=== PATIENT | female | born 1985 | race Caucasian/White ===

== ENCOUNTER 2021-05-25 00:07 | Emergency (ER) | payer BC, OTHER ==
[~2021-05-25] VITALS: Ht 167.6 cm; Wt 102.0 kg
[~2021-05-25 00:07] MED LIST: ONDA4TAB10 SL; TRAM-48 PO
--- NOTE | 2021-05-25 00:41 | PHYS DOC ---
Past History Past Medical History: Hypertension Past Surgical History: No Surgical History Alcohol Use: Rarely Drug Use: None Adult General HPI HPI Patient is a 35-year-old female with a past medical history of [place] with 2 stents placed who presents with chest pain that started approximately 2 hours ago that woke her up from bed with pain 7 out of 10, sharp in nature with radiation to the left arm. Denies recent traumas, illnesses, fevers, dyspnea on exertion, orthopnea, PND or edema, abdominal pain, nausea, vomiting, dysuria, hematuria or blood in the stool. Denies any alcohol or drug use. States that cardiovascular disease runs in the family. Review of Systems Review of Systems Constitutional: Denies fever or chills [] Eyes: Denies change in visual acuity, redness, or eye pain [] HENT: Denies nasal congestion or sore throat [] Respiratory: Denies cough or shortness of breath [] Cardiovascular: No additional information not addressed in HPI [] GI: Denies abdominal pain, nausea, vomiting, bloody stools or diarrhea [] : Denies dysuria or hematuria [] Musculoskeletal: Denies back pain or joint pain [] Integument: Denies rash or skin lesions [] Neurologic: Denies headache, focal weakness or sensory changes [] Endocrine: Denies polyuria or polydipsia [] All other systems were reviewed and found to be within normal limits, except as documented in this note. Allergies Allergies Allergies Coded Allergies Type Severity Reaction Last Updated Verified No Known Drug Allergies 05/29/16 No Physical Exam Physical Exam Constitutional: Well developed, well nourished, no acute distress, non-toxic appearance. [] HENT: Normocephalic, atraumatic, bilateral external ears normal, oropharynx moist, no oral exudates, nose normal. [] Eyes: conjunctiva normal, no discharge. [] Neck: Normal range of motion, no tenderness, supple, no stridor. [] Cardiovascular:Heart rate regular rhythm, no murmur [] Lungs & Thorax: Bilateral breath sounds clear to auscultation [] Abdomen: Bowel sounds normal, soft, no tenderness, no masses, no pulsatile masses. [] Skin: Warm, dry, no erythema, no rash. [] Back: No tenderness, no CVA tenderness. [] Extremities: No tenderness, no cyanosis, no clubbing, ROM intact, no edema. [] Neurologic: Alert and oriented X 3, normal motor function, normal sensory function, no focal deficits noted. [] Psychologic: Affect normal, judgement normal, mood normal. [] EKG EKG [] Radiology/Procedures Radiology/Procedures [] FINDINGS: The heart is not enlarged. Mediastinal and hilar contours are normal. No focal parenchymal airspace opacity. No pleural effusion or pneumothorax. IMPRESSION: 1. No radiographic evidence for acute cardiopulmonary process. Electronically signed by: Mikhail Montemayor MD (05/25/2021 1:10 AM) [facility] Heart Score C/O Chest Pain: Yes HEART Score for Chest Pain: HEART Score for Chest Pain Response (Comments) Value History Highly Suspicious 2 ECG Normal 0 Age < 45 0 Risk Factors >3 Risk Factors or Hx CAD 2 Troponin < Normal Limit 0 Total 4 Risk Factors: Risk Factors: DM, Current or recent (<one month) smoker, HTN, HLP, family history of CAD, obesity. Risk Scores: Risk Factors: DM, Current or recent (<one month) smoker, HTN, HLP, family history of CAD, obesity. Course & Med Decision Making Course & Med Decision Making Patient is a 35-year-old female presents with chest pain Vital signs notable for hypertension. Physical exam noted above. EKG noted above with no STEMI. Troponin slightly elevated. Given aspirin. Heparin started given patient's previous [place] and 2 stents. Laboratory analysis notable for elevated troponin. Discussed all findings with patient and recommended admission to [place] for continued evaluation and treatment of her non-ST elevation [place]. Patient grateful, verbalized understanding and agreed with plan of transfer and admission. Critical care time 30 minutes Dragon Disclaimer Dragon Disclaimer This electronic medical record was generated, in whole or in part, using a voice recognition dictation system. Departure Departure: Impression: Primary Impression: Non-ST elevation [place] (NSTEMI) Disposition: 02 SHORT TERM HOSPITAL Admitting Physician: Juan José Sevilla Condition: STABLE Referrals: JAKE CARROLL MD (PCP) MAIKEL VALIENTE MD May 25, 2021 00:41
--- NOTE | 2021-05-25 00:54 | EKG ---
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
--- NOTE | 2021-05-25 01:13 | RAD ---
EXAM: AP View of the chest DATE: 05/25/2021 12:45 AM INDICATION: Reason: CP / Spl. Instructions: / History: COMPARISON: No Prior FINDINGS: The heart is not enlarged. Mediastinal and hilar contours are normal. No focal parenchymal airspace opacity. No pleural effusion or pneumothorax. IMPRESSION: 1. No radiographic evidence for acute cardiopulmonary process. Electronically signed by: Mikhail Montemayor MD (05/25/2021 1:10 AM) ERICKA
[2021-05-25] MEDS ORDERED: ASPIRIN CHEWABLE 81 MG TABLET. ONE (01:28)
[2021-05-25 01:56] LABS: CREATININE 0.6 mg/dL (0.6-1.0); GFR 112.5; POTASSIUM 3.9 mmol/L (3.5-5.1)
[2021-05-25 01:58] LABS: BASO % 0 % (0-3); EOS # 0.1 x10^3/uL (0.0-0.7); EOS % 2 % (0-3); HEMATOCRIT 35.8 % (36.0-47.0); HEMOGLOBIN 11.8 g/dL (12.0-15.5); LYMPH # 1.6 x10^3/uL (1.0-4.8); LYMPH % 33 % (24-48); MEAN CORPUSCULAR HEMOGLOBIN 26 pg (25-35); MEAN CORPUSCULAR HGB CONC 33 g/dL (31-37); MEAN CORPUSCULAR VOLUME 79 fL (79-100); MONO # 0.3 x10^3/uL (0.0-1.1); MONO % 7 % (0-9); NEUT # 2.7 x10^3uL (1.8-7.7); NEUT % 57 % (31-73); PLATELET COUNT 151 x10^3/uL (140-400); RED BLOOD COUNT 4.56 x10^6/uL (3.50-5.40); RED CELL DISTRIBUTION WIDTH 15.6 % (11.5-14.5); WHITE BLOOD COUNT 4.7 x10^3/uL (4.0-11.0)
[2021-05-25] MEDS ORDERED: MORPHINE SULFATE 4 MG/ML DISP.SYRIN. ONE (02:03)
[2021-05-25] MEDS ORDERED: MORPHINE SULFATE 4 MG/ML DISP.SYRIN. IV ONE ×3 (02:30→05:30)
[2021-05-25] MEDS ORDERED: HEPARIN 25,000UTS/250ML PREMIX 250 ML IV PRN (02:45)
[2021-05-25] MEDS ORDERED: ANTI-COAG MONITOR BY PHARMACY. MC PRN (02:45)
[2021-05-25] MEDS ORDERED: HEPARIN for IV BOLUS 10,000 UNIT/10 ML VIAL. IV PRN (02:45)
[2021-05-25] MEDS ORDERED: HEPARIN for IV BOLUS 10,000 UNIT/10 ML VIAL. IV ONE (03:00)
[2021-05-25 03:42] VITALS: BP 111/73
== END 2021-05-25 04:50 | disposition short-term general hospital (02) ==
LOC: ER 00:07
DX: I21.4 Non-ST elevation (NSTEMI) myocardial infarction (principal); I10 Essential (primary) hypertension
CPT/HCPCS: 36415; 71045; 80048; 83735; 84484; 85025; 85610; 85730; 93005; 96365; 96375; 96376; 99285; J1644; J2270

== ENCOUNTER 2021-05-31 04:21 | Emergency (ER) | payer BC ==
[~2021-05-31] VITALS: Ht 167.6 cm; Wt 102.0 kg
[2021-05-31 05:04] LABS: BASO % 0 % (0-3); CALCIUM 9.3 mg/dL (8.5-10.1); CREATININE 0.6 mg/dL (0.6-1.0); EOS # 0.1 x10^3/uL (0.0-0.7); EOS % 2 % (0-3); GFR 112.5; HEMATOCRIT 38.8 % (36.0-47.0); HEMOGLOBIN 12.6 g/dL (12.0-15.5); LYMPH # 2.1 x10^3/uL (1.0-4.8); LYMPH % 33 % (24-48); MEAN CORPUSCULAR HEMOGLOBIN 26 pg (25-35); MEAN CORPUSCULAR HGB CONC 32 g/dL (31-37); MEAN CORPUSCULAR VOLUME 80 fL (79-100); MONO # 0.4 x10^3/uL (0.0-1.1); MONO % 6 % (0-9); NEUT # 3.6 x10^3uL (1.8-7.7); NEUT % 58 % (31-73); PLATELET COUNT 183 x10^3/uL (140-400); POTASSIUM 3.7 mmol/L (3.5-5.1); RED BLOOD COUNT 4.87 x10^6/uL (3.50-5.40); WHITE BLOOD COUNT 6.2 x10^3/uL (4.0-11.0)
--- NOTE | 2021-05-31 05:05 | EKG ---
[address] [address] Test Date: 2021-05-31 Test Time: 04:26:52 Pat Name: MARLYS PIERSON Department: Room: Gender: F Hay Buckler: : 1985 Requested By: CLARENCE KATE Order Number: [id number] Reading MD: Tod Moreira Measurements Intervals [place] Rate: 67 P: 24 MS: 164 QRS: 45 QRSD: 94 T: 64 QT: 376 QTc: 400 Interpretive Statements SINUS RHYTHM Electronically Signed On 05-31-2021 13:29:46 CDT by Tod Moreira
[2021-05-31] MEDS: NITROGLYCERIN PREMIX 250 ML IV ONE (05:07)
[2021-05-31 05:10] LABS: ALBUMIN 3.7 g/dL (3.4-5.0); ALBUMIN/GLOBULIN RATIO 0.9 (1.0-1.7); TOTAL BILIRUBIN 0.3 mg/dL (0.2-1.0); TOTAL PROTEIN 7.8 g/dL (6.4-8.2)
--- NOTE | 2021-05-31 05:11 | RAD ---
Single view chest dated 05/31/2021 5:09 AM: COMPARISON: 05/25/2021 Clinical Indication: Chest pain. Findings: Single upright portable exam of the chest was performed. Heart size and mediastinal contours are with in normal limits. Lungs are clear. No consolidation or pleural effusion. No pneumothorax. IMPRESSION: No acute radiographic abnormality. Electronically signed by: Yosef Hall MD (05/31/2021 5:09 AM) JAH
[2021-05-31] MEDS: HEPARIN for IV BOLUS 10,000 UNIT/10 ML VIAL. IV ONE (05:25)
[2021-05-31] MEDS: HEPARIN 25,000UTS/250ML PREMIX 250 ML IV PRN (05:29)
[2021-05-31] MEDS: MORPHINE SULFATE 2 MG/ML DISP.SYRIN. IV ONE (05:42)
--- NOTE | 2021-05-31 05:42 | PHYS DOC ---
Past History Past Medical History: Hypertension Additional Past Medical Histor: Raynauds Past Surgical History: Angioplasty, Appendectomy, , Other Additional Past Surgical Histo: 2 stents placed to rt coronary, egd Alcohol Use: Occasionally Drug Use: None Adult General Chief Complaint Chief Complaint: CHEST PAIN [facility] HPI Patient is a 35 year old female who presents with chest pain located in the mid to left chest area. The pain started at rest and after lasting for 10 minutes patient took sublingual nitroglycerin which resolved within 5 minutes. However 5-minute later the pain came back for which she took sublingual nitro again with resolution of the pain. The pain came back the third time and was not resolved by the sublingual nitro and thus comes to the emergency department for further evaluation. The pain is rated 7 out of 10 in intensity without any shortness of breath or nausea. Patient does have a cardiac history and that 2 weeks ago she was seen at [facility] where she had cardiac catheterization done showing coronary artery disease deemed necessitating cardiac bypass. She saw cardiothoracic surgeon at [facility] last Sunday and is scheduled to have CABG done but not till July 25 due to some bed restrictions. Patient otherwise has been taking all her medication as prescribed by physician. Review of Systems Review of Systems Constitutional: Denies fever or chills Eyes: Denies change in visual acuity, redness, or eye pain HENT: Denies nasal congestion or sore throat Respiratory: Denies cough or shortness of breath Cardiovascular: No additional information not addressed in HPI GI: Denies abdominal pain, nausea, vomiting, bloody stools or diarrhea : Denies dysuria or hematuria Musculoskeletal: Denies back pain or joint pain Integument: Denies rash or skin lesions Neurologic: Denies headache, focal weakness or sensory changes Endocrine: Denies polyuria or polydipsia All other systems were reviewed and found to be within normal limits, except as documented in this note. Current Medications Current Medications Current Medications Medications (Trade) Dose Ordered Sig/Shazia Start Time Stop Time Status Last Admin Dose Admin Heparin Sodium (Porcine) (Heparin Sodium) 4,000 unit 1X ONCE 05/31/21 05:00 05/31/21 05:01 DC 05/31/21 05:25 4,000 UNIT Heparin Sodium/ Dextrose 250 ml @ 10 mls/hr CONT PRN 05/31/21 04:45 05/31/21 05:29 10 MLS/HR Nitroglycerin/ Dextrose 250 ml @ 1.5 mls/hr 1X ONCE 05/31/21 04:45 06/07/21 03:24 05/31/21 05:07 1.5 MLS/HR Allergies Allergies Allergies Coded Allergies Type Severity Reaction Last Updated Verified medroxyprogesterone Allergy Intermediate 05/31/21 Yes isosorbide Adverse Reaction Intermediate nausea,vomiting,migraine 05/31/21 Yes Physical Exam Physical Exam Constitutional: Well developed, well nourished, no acute distress, non-toxic appearance. HENT: Normocephalic, atraumatic, bilateral external ears normal, oropharynx moist, no oral exudates, nose normal. Eyes: PERRLA, EOMI, conjunctiva normal, no discharge. Neck: Normal range of motion, no tenderness, supple, no stridor. Cardiovascular:Heart rate regular rhythm, no murmur Lungs & Thorax: Bilateral breath sounds clear to auscultation Abdomen: Bowel sounds normal, soft, no tenderness, no masses, no pulsatile masses. Skin: Warm, dry, no erythema, no rash. Back: No tenderness, no CVA tenderness. Extremities: No tenderness, no cyanosis, no clubbing, ROM intact, no edema. Neurologic: Alert and oriented X 3, normal motor function, normal sensory function, no focal deficits noted. Psychologic: Affect normal, judgement normal, mood normal. Current Patient Data Vital Signs Vital Signs Date Time Temp Pulse Resp B/P (MAP) Pulse Ox O2 Delivery O2 Flow Rate FiO2 05/31/21 05:13 69 16 133/79 (97) 98 Room Air 05/31/21 04:25 98.4 Lab Results Laboratory Tests Test 05/31/21 04:25 White Blood Count 6.2 x10^3/uL (4.0-11.0) Red Blood Count 4.87 x10^6/uL (3.50-5.40) Hemoglobin 12.6 g/dL (12.0-15.5) Hematocrit 38.8 % (36.0-47.0) Mean Corpuscular Volume 80 fL (79-100) Mean Corpuscular Hemoglobin 26 pg (25-35) Mean Corpuscular Hemoglobin Concent 32 g/dL (31-37) Red Cell Distribution Width 16.0 % (11.5-14.5) H Platelet Count 183 x10^3/uL (140-400) Neutrophils (%) (Auto) 58 % (31-73) Lymphocytes (%) (Auto) 33 % (24-48) Monocytes (%) (Auto) 6 % (0-9) Eosinophils (%) (Auto) 2 % (0-3) Basophils (%) (Auto) 0 % (0-3) Neutrophils # (Auto) 3.6 x10^3uL (1.8-7.7) Lymphocytes # (Auto) 2.1 x10^3/uL (1.0-4.8) Monocytes # (Auto) 0.4 x10^3/uL (0.0-1.1) Eosinophils # (Auto) 0.1 x10^3/uL (0.0-0.7) Basophils # (Auto) 0.0 x10^3/uL (0.0-0.2) Sodium Level 139 mmol/L (136-145) Potassium Level 3.7 mmol/L (3.5-5.1) Chloride Level 103 mmol/L (98-107) Carbon Dioxide Level 29 mmol/L (21-32) Anion Gap 7 (6-14) Blood Urea Nitrogen 11 mg/dL (7-20) Creatinine 0.6 mg/dL (0.6-1.0) Estimated GFR (Cockcroft-Gault) 112.5 BUN/Creatinine Ratio 18 (6-20) Glucose Level 161 mg/dL (70-99) H Calcium Level 9.3 mg/dL (8.5-10.1) Total Bilirubin 0.3 mg/dL (0.2-1.0) Aspartate Amino Transferase (AST) 32 U/L (15-37) Alanine Aminotransferase (ALT) 45 U/L (14-59) Alkaline Phosphatase 78 U/L (46-116) Total Protein 7.8 g/dL (6.4-8.2) Albumin 3.7 g/dL (3.4-5.0) Albumin/Globulin Ratio 0.9 (1.0-1.7) L EKG EKG Twelve-lead EKG shows normal sinus rhythm at 67 bpm without any evidence of acute ischemia or arrhythmias per my interpretation. Radiology/Procedures Radiology/Procedures Chest x-ray showed per radiology interpretation shows no acute abnormalities. Heart Score C/O Chest Pain: Yes HEART Score for Chest Pain: HEART Score for Chest Pain Response (Comments) Value History Highly Suspicious 2 ECG Normal 0 Age < 45 0 Risk Factors >3 Risk Factors or Hx CAD 2 Troponin >1-<3x Normal Limit 1 Total 5 Risk Factors: Risk Factors: DM, Current or recent (<one month) smoker, HTN, HLP, family history of CAD, obesity. Course & Med Decision Making Course & Med Decision Making Pertinent Labs and Imaging studies reviewed. (See chart for details) Due to patient's complaint of chest pain consistent with angina, patient was started on cardiac tech, saline lock, nitroglycerin and heparin drip. Explained to the patient the nature symptoms and in view of her recent diagnosis of requiring CABG, the need for such treatment and she understands. Her twelve- lead EKG did not show any acute changes. I spoke with Dr. Salazar at [facility] where patient is scheduled to have CABG and has had cardiac evaluation. Dr. Salazar informs me that there are no beds available at [facility] and he is not able to accept this patient in transfer at present time. 5:55 AM: Patient has been given 2 mg of morphine and nitroglycerin drip was increased to 15 mcg, patient though appears comfortable states that the pain is 6 out of 10. She is hemodynamically stable. I spoke with Dr. Uribe at [facility] who has agreed to accept patient in transfer to intensive care unit for further management that is not available at this facility. Patient is awaiting transfer and is being signed out to next ED physician at 6 AM on shift change. Dragon Disclaimer Dragon Disclaimer This electronic medical record was generated, in whole or in part, using a voice recognition dictation system. Departure Departure: Impression: Primary Impression: Unstable angina Referrals: JAKE CARROLL MD (PCP) CLARENCE KATE MD May 31, 2021 05:42
[2021-05-31] MEDS: ASPIRIN ENTERIC COATED 325 MG TABLET.DR. PO ONE (07:05)
[2021-05-31 08:05] VITALS: BP 147/94
== END 2021-05-31 08:05 | disposition left against medical advice (07) ==
LOC: ER 04:21
DX: I20.0 Unstable angina (principal); R77.8 Other specified abnormalities of plasma proteins; I10 Essential (primary) hypertension; Z20.822 Contact with and (suspected) exposure to COVID-19; Z88.8 Allergy status to other drugs, medicaments and biological substances
CPT/HCPCS: 36415; 71045; 80053; 84484; 85025; 87426; 93005; 96365; 96366; 96368; 96375; 96376; 99291; C9803; J1644; J2270; J3010; J3490; U0003